=== PATIENT | female | born 1985 | race Caucasian/White ===

== ENCOUNTER 2022-08-12 11:02 | Outpatient (CLI) | payer BC, SELFPAY ==
[2022-08-12 22:55] LABS: Chlamydia DNA Amplified* NOT DETECTED (No Detected); GC DNA Amplified* NOT DETECTED (No Detected)
== END 2022-08-12 11:03 | disposition home or self-care (01) ==
PROVIDERS: PCP Physician Assistant Medical; Visit Provider Physician Assistant Medical
DX: Z00.00 Encounter for general adult medical examination without abnormal findings (principal); R68.82 Decreased libido; Z11.3 Encounter for screening for infections with a predominantly sexual mode of transmission; Z13.6 Encounter for screening for cardiovascular disorders
CPT/HCPCS: 80061; 83001; 84443; 87491; 87591

== ENCOUNTER 2023-01-06 14:08 | Outpatient (CLI) | payer BC, SELFPAY | END 2023-01-06 14:09 | disposition home or self-care (01) | PROVIDERS: PCP Physician Assistant Medical; Visit Provider Physician Assistant Medical | DX: K21.9 Gastro-esophageal reflux disease without esophagitis (principal); R07.9 Chest pain, unspecified | CPT/HCPCS: 80053; 83690 ==

== ENCOUNTER 2023-01-21 11:54 | Outpatient (CLI) | payer BC, SELFPAY ==
--- NOTE | 2023-01-21 13:15 | W.ANESCHARGE ---
Anesthesia Charges Start Date/Time Anesthesia Start Date: 01/21/23 Anesthesia Start Time: 12:55 Stop Date/Time Anesthesia Stop Date: 01/21/23 Anesthesia Stop Time: 13:12
--- NOTE | 2023-01-21 14:41 | W.ANESCHARGE ---
Anesthesia Charges Start Date/Time Anesthesia Start Date: 01/21/23 Anesthesia Start Time: 12:55 Stop Date/Time Anesthesia Stop Date: 01/21/23 Anesthesia Stop Time: 13:12
== END 2023-01-21 11:55 | disposition home or self-care (01) ==
LOC: OP CLINIC 11:54
PROVIDERS: PCP Physician Assistant Medical; Visit Provider Surgery
DX: K21.9 Gastro-esophageal reflux disease without esophagitis (principal)
CPT/HCPCS: 00731; 43239; 88305; J2704; J3490

== ENCOUNTER 2023-12-02 13:13 | Outpatient (CLI) | payer BC, SELFPAY | END 2023-12-02 13:14 | disposition home or self-care (01) | PROVIDERS: PCP Physician Assistant Medical; Visit Provider Physician Assistant Medical | DX: M79.644 Pain in right finger(s) (principal); R53.83 Other fatigue; Z13.228 Encounter for screening for other metabolic disorders; Z13.220 Encounter for screening for lipoid disorders | CPT/HCPCS: 80053; 80061; 82306; 82607; 86141 ==

== ENCOUNTER 2024-01-12 12:55 | Outpatient (CLI) | payer BC, SELFPAY ==
--- NOTE | 2024-01-12 13:00 | CRLHL7_ITS ---
For Patients: As a result of the Century Cures Act, medical imaging exams and procedure reports are released immediately into your electronic medical record. You may view this report before your referring provider. If you have questions, please contact your health care provider. Indication: CHRONIC SINUSITIS. FACIAL PRESSURE Technique: Performed without IV contrast Comparison: 12/12/2019 Findings: Frontal sinuses: Clear. Ethmoid sinuses: Clear. Maxillary sinuses: Small mucous retention cyst on the right again noted measuring 9 millimeters. Left maxillary sinus clear. The maxillary sinus drainage pathways are patent on both sides. Sphenoid sinuses: Minimal mucosal thickening on the right. Clear left sphenoid sinus. Patent sphenoethmoidal recesses. Nasal Cavity: Rightward curvature nasal septum. No clinton bullosa. No polyp. No TMJ abnormalities identified. The visualized portions of the orbits, intracranial contents and upper soft tissue neck are grossly negative. Impression: 1. Minimal right maxillary and right sphenoid sinus disease. 2. Rightward curvature nasal septum. Please note that all CT scans at this facility use dose modulation, iterative reconstruction, and/or weight-based dosing when appropriate to reduce radiation dose to as low as reasonably achievable. Dictated by Booker Gonzales MD @ 01/14/2024 11:54:27 AM (Electronically Signed)
== END 2024-01-12 12:56 | disposition home or self-care (01) ==
LOC: CT 12:55
PROVIDERS: PCP Physician Assistant Medical; Visit Provider Otolaryngology
DX: J32.9 Chronic sinusitis, unspecified (principal); J32.0 Chronic maxillary sinusitis; J32.3 Chronic sphenoidal sinusitis; J34.2 Deviated nasal septum
CPT/HCPCS: 70486

== ENCOUNTER 2024-03-02 13:01 | Outpatient (CLI) | payer BC, SELFPAY ==
--- NOTE | 2024-03-02 13:00 | CRLHL7_ITS ---
For Patients: As a result of the Century Cures Act, medical imaging exams and procedure reports are released immediately into your electronic medical record. You may view this report before your referring provider. If you have questions, please contact your health care provider. BILATERAL SCREENING MAMMOGRAM WITH COMPUTER-AIDED DETECTION AND TOMOSYNTHESIS TECHNIQUE: CC and MLO views were obtained. These mammographic images have been obtained using full-field digital technique. These mammographic images were interpreted with the benefit of computer-aided detection. Breast tomosynthesis was used in this interpretation. COMPARISON FILM: None. This is a baseline study. FINDINGS: There are scattered areas of fibroglandular density. IMPRESSION: There is no radiographic evidence for malignancy. ASSESSMENT: BI-RADS Category 1: Negative RECOMMENDATION: Routine screening mammogram in 1 year. A lay language report of this examination will be provided to the patient. BOOKER EL M.D. Diagnostic Radiologist [email or web address] Transcribed: 03/06/2024, 10:[address]/Dictated by: Booker El MD @ 03/03/2024 9:39:00 AM (Electronically Signed)
== END 2024-03-02 13:02 | disposition home or self-care (01) ==
LOC: MAMMO 13:02
PROVIDERS: PCP Physician Assistant Medical; Visit Provider Physician Assistant Medical
DX: Z12.31 Encounter for screening mammogram for malignant neoplasm of breast (principal)
CPT/HCPCS: 77063; 77067

== ENCOUNTER 2024-03-15 10:21 | Outpatient (CLI) | payer BC, SELFPAY | END 2024-03-15 10:22 | disposition home or self-care (01) | PROVIDERS: PCP Physician Assistant Medical; Visit Provider Physician Assistant Medical | DX: E53.8 Deficiency of other specified B group vitamins (principal); R68.82 Decreased libido; Z01.818 Encounter for other preprocedural examination | CPT/HCPCS: 82306; 82607 ==

== ENCOUNTER 2024-03-24 07:20 | Day surgery (SDC) | payer BC, SELFPAY ==
[2024-03-24] VITALS (13 sets, daily range): BP systolic 111–133; BP diastolic 75–102; PULSE 84–109; RESP 12–20; TEMP 36.6–36.8; O2SAT 96–100; BMI 20.2
[2024-03-24] MEDS: 0.9 % SODIUM CHLORIDE 500 ML 500 ML 100 ML IV ×2 (07:45→10:26)
[2024-03-24] MEDS: SODIUM CHLORIDE 0.9 % (FLUSH) 10 ML SYRINGE IVF (07:45)
[2024-03-24 08:12] LABS: Ur HCG Qualitative* Negative (Negative)
[2024-03-24] MEDS: OXYMETAZOLINE 0.05% NASAL SPRAY 2 SPRAY NOSTRIL-B (09:00)
[2024-03-24] MEDS: COCAINE HCL 4 % 4 ML SOLUTION NOSTRIL-B (10:39)
[2024-03-24] MEDS: MUPIROCIN 1 GM PACKET 1 APPLIC TOPICAL (10:44)
[2024-03-24] MEDS: BUPIVACAINE 0.5%/EPINEPHRINE 0.9 MG (30.9 ML) INJECTION (10:45)
[2024-03-24] MEDS: AYR SALINE NASAL GEL 1 APPLIC NOSTRIL-B (10:47)
--- NOTE | 2024-03-24 11:29 | P.ANES_ITS ---
Anesthesia Charges Start Date/Time Anesthesia Start Date: 03/24/24 Anesthesia Start Time: 10:28 Stop Date/Time Anesthesia Stop Date: 03/24/24 Anesthesia Stop Time: 10:57 Coding CPT Codes CPT Codes: ANESTH NOSE/SINUS SURGERY - 00798 ([id number]) P2 - PATIENT W/MILD SYST DISEASE, QK - WOOL WASHER FEEDER 2-4 CNCRNT ANES PROC, QX - [employer]SMAN[employer]IP INSTRUCTOR SVC W/ MD MED DIRECTION
--- NOTE | 2024-03-24 11:29 | W.ANESCHARGE ---
Anesthesia Charges Start Date/Time Anesthesia Start Date: 03/24/24 Anesthesia Start Time: 10:28 Stop Date/Time Anesthesia Stop Date: 03/24/24 Anesthesia Stop Time: 10:57 Coding CPT Codes CPT Codes: ANESTH NOSE/SINUS SURGERY - 02209 ([id number]) P2 - PATIENT W/MILD SYST DISEASE, QK - DIRECTOR OF OPERATIONS HOME HEALTH 2-4 CNCRNT ANES PROC, QX - INSURANCE CLAIM REPRESENTATIVE SVC W/ MD MED DIRECTION
[2024-03-24] MEDS: ACETAMINOPHEN 325 MG TABLET PO (11:40)
[2024-03-24] MEDS: OXYCODONE 5 MG TABLET PO (11:40)
[2024-03-24] MEDS: hydrOXYzine pamoate 25 MG CAPSULE PO (11:55)
--- NOTE | 2024-03-24 12:43 | W.PM.ENTPROC ---
Procedure Note Date of procedure: 03/24/24 Procedure: Preop diagnosis nasal obstruction, nasal headache, bilateral inferior middle turbinate hypertrophy Postoperative diagnosis same Procedure submucous partial resection inferior turbinates bilateral Under general tracheal anesthesia patient was prepped draped usual fashion nose decongested injected. The middle turbinates were simply crushed with the Dovray forceps. A stab incision was made in the anterior left inferior turbinate a tunnel created with a [place] dissector. A conservative anterior submucous resection was performed. The Coblation was used to cauterize intramurally along the inferior 10%. This was repeated on the right side in identical fashion. Merocel packing was placed in the middle meatus on each side. The patient procedure well was taken recovery in satisfactory condition. Blood loss was 10 mL. Surgeon: Brandon Hahn MD
--- NOTE | 2024-03-24 13:01 | W.ANESCHARGE ---
Anesthesia Charges Start Date/Time Anesthesia Start Date: 03/24/24 Anesthesia Start Time: 10:28 Stop Date/Time Anesthesia Stop Date: 03/24/24 Anesthesia Stop Time: 10:57 Coding CPT Codes CPT Codes: ANESTH NOSE/SINUS SURGERY - 46419 ([id number]) P2 - PATIENT W/MILD SYST DISEASE, QX - PHOTO SPECIALIST SVC W/ MD MED DIRECTION, QK - BOX BENDER 2-4 CNCRNT ANES PROC
== END 2024-03-24 12:48 | disposition home or self-care (01) ==
LOC: OR 07:21
PROVIDERS: Anesthesiology; PCP Physician Assistant Medical; Visit Provider Otolaryngology
PROC: (CPT 30140; principal; 2024-03-24 09:30)
DX: J34.3 Hypertrophy of nasal turbinates (principal); J34.89 Other specified disorders of nose and nasal sinuses; R51.9 Headache, unspecified
CPT/HCPCS: 30140; 00160; 81025; A9270; J1100; J2250; J2405; J2704; J3010; J7030

== ENCOUNTER 2024-06-28 13:33 | Outpatient (CLI) | payer BC, SELFPAY | END 2024-06-28 13:34 | disposition home or self-care (01) | PROVIDERS: PCP Physician Assistant Medical; Visit Provider Physician Assistant Medical | DX: N92.6 Irregular menstruation, unspecified (principal); E53.8 Deficiency of other specified B group vitamins; Z11.3 Encounter for screening for infections with a predominantly sexual mode of transmission; Z11.4 Encounter for screening for human immunodeficiency virus [HIV]; Z11.59 Encounter for screening for other viral diseases | CPT/HCPCS: 82607; 83001; 84443; 86592; 86703; 86803 ==

== ENCOUNTER 2024-07-05 13:49 | Outpatient (CLI) | payer BC, SELFPAY ==
--- NOTE | 2024-07-05 13:45 | CRLHL7_ITS ---
For Patients: As a result of the Century Cures Act, medical imaging exams and procedure reports are released immediately into your electronic medical record. You may view this report before your referring provider. If you have questions, please contact your health care provider. CLINICAL HISTORY: pelvic pain TECHNIQUE: 2D goins scale ultrasound. In addition color Doppler and spectral Doppler analysis was performed of the pelvis using a transabdominal and transvaginal approach. FINDINGS: On transvaginal imaging, the myometrium has a normal uniform echotexture. The uterus measures 6.7 x 2.4 x 4.2 cm the endometrial lining appears normal and measures 3.1 mm in thickness. The right ovary measures 2.9 x 1.6 x 2.1 cm in size and the left ovary measures 2.4 x 1.5 x 1.4 cm. The ovaries demonstrate normal arterial and venous blood flow on color Doppler and spectral Doppler analysis. There are no suspicious fluid collections within the cul-de-sac. IMPRESSION: Normal pelvic ultrasound. Dictated by Booker Gonzales MD @ 07/05/2024 3:16:23 PM (Electronically Signed)
== END 2024-07-05 13:50 | disposition home or self-care (01) ==
LOC: US 13:50
PROVIDERS: PCP Physician Assistant Medical; Visit Provider Physician Assistant Medical
DX: R10.2 Pelvic and perineal pain (principal)
CPT/HCPCS: 76830; 76856; 93976